=== PATIENT | female | born 1950 | race Caucasian/White ===

== ENCOUNTER 2017-08-07 12:44 | Inpatient (IN) | payer MEDICARE, BC ==
[~2017-08-07] VITALS: Ht 160 cm; Wt 50.0 kg
[2017-08-07 14:29] LABS: BASOPHILS 0.1 % (0-2); EOSINOPHILS 0.1 % (0-7); HEMOGLOBIN 12.1 g/dL (12-16); IMMATURE GRANULOCYTES 0.3 % (0-5); LYMPHOCYTES 8.2 % (15-50); MCH 37.2 pg (26.0-34.0); MCHC 33.6 g/dL (31.0-37.0); MCV 110.8 fL (80.0-100.0); MEAN PLATELET VOLUME 11.9 fL (7.4-10.4); MONOCYTES 11.7 % (2-11); NEUTROPHILS 79.6 % (40-80); RBC 3.25 10x6/uL (4.00-5.40); RDW 15.5 % (11.5-14.5); WBC 11.5 10x3/uL (4.8-10.8)
[2017-08-07 14:35] LABS: PLATELET COUNT 58 10x3/uL (130-400)
[2017-08-07 14:42] LABS: ALBUMIN 2.8 g/dL (3.4-5.0); ALKALINE PHOSPHATASE 106 U/L (46-116); ALT (SGPT) 42 U/L (10-68); BILIRUBIN - TOTAL 5.46 mg/dL (0.2-1.3); CALC OSMOLALITY 272 mosm/kg (275-300); CALCIUM 10.4 mg/dL (8.5-10.1); CHLORIDE - SERUM 98 mmol/L (98-107); CREATININE - SERUM 0.8 mg/dL (0.6-1.3); GLUCOSE 120 mg/dL (74-106); POTASSIUM - SERUM 3.9 mmol/L (3.5-5.1); PROTEIN - SERUM 8.5 g/dL (6.4-8.2); SODIUM 133 mmol/L (136-145); UREA NITROGEN 28 mg/dL (7-18); eGFR NON AFRICAN AMERICAN 76 mL/min (90-120)
[2017-08-07 15:02] LABS: PLATELET ESTIMATE DECREASED
[2017-08-07 15:29] LABS: UDS - AMPHET NEGATIVE QUAL (NEGATIVE); UDS - BARB NEGATIVE QUAL (NEGATIVE); UDS - BENZO NEGATIVE QUAL (NEGATIVE); UDS - COCAINE NEGATIVE QUAL (NEGATIVE); UDS - OPIATE NEGATIVE QUAL (NEGATIVE); UDS - PCP NEGATIVE QUAL (NEGATIVE); UDS - THC NEGATIVE QUAL (NEGATIVE)
[2017-08-07 15:48] LABS: APPEARANCE CLEAR (CLEAR); BILIRUBIN NEGATIVE (NEGATIVE); COLOR YELLOW (YELLOW); GLUCOSE NEGATIVE (NEGATIVE); KETONE NEGATIVE (NEGATIVE); NITRITE NEGATIVE (NEGATIVE); PROTEIN NEGATIVE (NEGATIVE); UROBILINOGEN NORMAL (NORMAL)
[2017-08-07] MEDS ORDERED: FERROUS SULFAT325 MG PO (20:41)
[2017-08-08 03:23] VITALS: BP 144/83; BMI 19.5
[2017-08-08 06:32] LABS: CALCIUM 9.2 mg/dL (8.5-10.1); CHLORIDE - SERUM 99 mmol/L (98-107); CREATININE - SERUM 0.8 mg/dL (0.6-1.3); GLUCOSE 101 mg/dL (74-106); SODIUM 132 mmol/L (136-145); eGFR NON AFRICAN AMERICAN 76 mL/min (90-120)
[2017-08-08 07:11] LABS: CALC OSMOLALITY 266 mosm/kg (275-300); POTASSIUM - SERUM 2.6 mmol/L (3.5-5.1); UREA NITROGEN 17 mg/dL (7-18)
[2017-08-08 09:24] LABS: BASOPHILS 0.1 % (0-2); HEMATOCRIT 32.5 % (36.0-48.0); HEMOGLOBIN 11.1 g/dL (12-16); IMMATURE GRANULOCYTES 0.4 % (0-5); LYMPHOCYTES 12.5 % (15-50); MCH 37.2 pg (26.0-34.0); MCHC 34.2 g/dL (31.0-37.0); MCV 109.1 fL (80.0-100.0); MEAN PLATELET VOLUME 12.5 fL (7.4-10.4); MONOCYTES 18.8 % (2-11); NEUTROPHILS 67.2 % (40-80); PLATELET COUNT 52 10x3/uL (130-400); RBC 2.98 10x6/uL (4.00-5.40); RDW 15.3 % (11.5-14.5)
[2017-08-08 09:36] VITALS: BP 149/60
[2017-08-08 10:36] VITALS: Ht 160 cm; Wt 50.0 kg
[2017-08-08 12:17] LABS: MAGNESIUM - SERUM 1.1 mg/dL (1.8-2.4); PHOSPHOROUS 2.9 mg/dL (2.5-4.9)
[2017-08-08 13:21] VITALS: BP 148/75
[2017-08-08 17:02] VITALS: BP 154/80
[2017-08-08 18:13] LABS: ALBUMIN 2.3 g/dL (3.4-5.0); ALKALINE PHOSPHATASE 123 U/L (46-116); ALT (SGPT) 35 U/L (10-68); CALC OSMOLALITY 270 mosm/kg (275-300); CALCIUM 8.5 mg/dL (8.5-10.1); CARBON DIOXIDE 20.3 mmol/L (21.0-32.0); CHLORIDE - SERUM 102 mmol/L (98-107); CREATININE - SERUM 0.7 mg/dL (0.6-1.3); GLUCOSE 137 mg/dL (74-106); PROTEIN - SERUM 6.7 g/dL (6.4-8.2); SODIUM 134 mmol/L (136-145); UREA NITROGEN 14 mg/dL (7-18); eGFR NON AFRICAN AMERICAN 89 mL/min (90-120)
[2017-08-08 18:20] LABS: MAGNESIUM - SERUM 1.8 mg/dL (1.8-2.4)
[2017-08-08 18:25] LABS: POTASSIUM - SERUM 2.6 mmol/L (3.5-5.1)
[2017-08-08 23:07] VITALS: BP 165/77
[2017-08-09 05:00] VITALS: BP 134/80
--- NOTE | 2017-08-09 05:04 | CN ---
PATIENT NAME:GLADYS SAINI MEDICAL RECORD: [id number] : 54 LOCATION:D.MS [facility] ADMIT DATE: 08/08/17 ACCOUNT: [id number] CONSULTING PHYSICIAN: KAYA SCHNEIDER III, MD REFERRING PHYSICIAN: MICHAEL BARRON MD DATE OF CONSULTATION: 08/08/2017 HISTORY OF PRESENT ILLNESS: This is a 67-year-old white female who was brought to the Emergency Department last night in an acutely delirious state. The patient appeared to be hallucinating. She was agitated and combative. Initial labs indicated significant dehydration. CT scan of the brain did not reveal acute intracranial pathology. The patient remained confused and was admitted to the medical floor. On exam this morning, the patient remains confused and slow to respond. She does admit to "drinking too much." She states that she has had delirium tremens in the past. She has been in alcohol treatment in the past, but states "I don't know what they can do." She states that her last drink was "a beer" about a week ago. MENTAL STATUS EXAM: The patient is perplexed, affect is rather shallow. Speech shows a great deal of latency and frequent word finding pauses. Content of thought at present is not positive for overt psychosis. On sensorium testing, the patient is oriented to person and the fact that she is in the [facility]. She is quite confused about the time. She guesses correctly that the month is July. Remote recall appears to be relatively intact, but there is increased latency in her recollections, intermediate and short-term recall are impaired consistent with recent delirium. IMPRESSION: Alcoholism by history, likely delirium from withdrawal. PLAN: 1. At the present time, medical workup is continuing. If the patient shows delano withdrawal symptoms, then use of p.r.n. benzodiazepines is indicated. 2. If the patient continues to remain confused and/or psychotic and medical workup is inconclusive, then we may accept her on nursing home for further evaluation. 3. At the time of discharge, the patient should be given a referral for [facility] for supportive counseling and perhaps referral to a 12-step program. TRANSINT:[id number] Voice Confirmation ID: [id number] DOCUMENT ID: [id number] KAYA SCHNEIDER III, MD at 0504 CC: [id number] DICTATION DATE: 08/08/17 0932 DOT COMPLIANCE SPECIALIST: 08/08/17 1008 ADM IN [facility] [address] [id number]
--- NOTE | 2017-08-09 05:44 | NUR ---
PT RESTING IN BED WITH NO DISTRESS. RESPIRATIONS EVEN AND UNLABORED. SIDE RAILS X 2. BED LOW. CALL LIGHT IN REACH.
[2017-08-09 05:47] LABS: HEMATOCRIT 36.6 % (36.0-48.0); HEMOGLOBIN 12.4 g/dL (12-16); MCHC 33.9 g/dL (31.0-37.0); MCV 109.3 fL (80.0-100.0); MEAN PLATELET VOLUME 12.2 fL (7.4-10.4); RBC 3.35 10x6/uL (4.00-5.40); RDW 15.2 % (11.5-14.5); WBC 8.4 10x3/uL (4.8-10.8)
[2017-08-09 05:56] LABS: PLATELET COUNT 64 10x3/uL (130-400)
[2017-08-09 06:17] LABS: ALBUMIN 2.7 g/dL (3.4-5.0); ALKALINE PHOSPHATASE 139 U/L (46-116); ALT (SGPT) 43 U/L (10-68); CALC OSMOLALITY 265 mosm/kg (275-300); CALCIUM 9.4 mg/dL (8.5-10.1); CARBON DIOXIDE 23.5 mmol/L (21.0-32.0); CHLORIDE - SERUM 97 mmol/L (98-107); CREATININE - SERUM 0.8 mg/dL (0.6-1.3); GLUCOSE 114 mg/dL (74-106); PROTEIN - SERUM 8.2 g/dL (6.4-8.2); SODIUM 132 mmol/L (136-145); UREA NITROGEN 12 mg/dL (7-18); eGFR NON AFRICAN AMERICAN 76 mL/min (90-120)
[2017-08-09 06:38] LABS: POTASSIUM - SERUM 2.5 mmol/L (3.5-5.1)
[2017-08-09 06:42] LABS: LYMPHOCYTES 12 % (15-50); MONOCYTES 17 % (2-11); NEUTROPHILS 64 % (40-80); PLATELET ESTIMATE DECREASED
--- NOTE | 2017-08-09 08:00 | NUR ---
NO CHANGES NOTED AT THIS TIME REC'D IN BED WITH EYES CLOSED EASILY AROUSED WHEN NAME IS CALLED. RESP EVEN AND UNLABORED. NOC/O NOTED OR VOICED. ASSESSMENT COMPLETED. C/L IN REACH AT BEDSIDE.
[2017-08-09 08:33] VITALS: BP 149/75
[2017-08-09 10:06] LABS: MAGNESIUM - SERUM 1.5 mg/dL (1.8-2.4)
[2017-08-09 10:09] LABS: PHOSPHOROUS 2.1 mg/dL (2.5-4.9)
--- NOTE | 2017-08-09 11:28 | NUR ---
IV RESITED TO RIGHT FOREARM WITH 22 GA X 1 STICK. TOLERATED WELL
[2017-08-09 12:21] VITALS: BP 159/78
--- NOTE | 2017-08-09 12:42 | NUR ---
Patient Name: GLADYS SAINI Admission Status: ER Accout number: [id number] Admission Date: 08-08-2017 : 1950 Admission Diagnosis: Attending: MICHAEL WHITESIDE Current LOS: 1 Anticipated DC Date: Planned Disposition: Home Primary Insurance: MEDICARE A & B Discharge Planning Comments: CM met with patient to assess discharge planning needs. Patient lives independently at home where she plans to return. Her sister Lianna will be the one to drive her home and stated that she will help her if she needs it. Patient admitted that she had an alcohol problem but stated that she has not had a drink in a week. I offered her information about treatment centers and she was not interested. I explained to her that Dr Landin would like a referral sent to [facility] she stated I could send the referral and she would decide if she would go or not. She wants to go home. CM offered HH and she refused that. Referral will be made to [facility]. Referrral faxed to [phone]. CM will continue to follow and assist with discharge planning needs PCP: Lisa Quintana on [address] [phone] Coagulation Operator: Amber Sands
[2017-08-09 14:17] LABS: ALBUMIN 2.4 g/dL (3.4-5.0); ALKALINE PHOSPHATASE 138 U/L (46-116); ALT (SGPT) 38 U/L (10-68); BILIRUBIN - TOTAL 5.15 mg/dL (0.2-1.3); CALCIUM 8.6 mg/dL (8.5-10.1); CARBON DIOXIDE 23.4 mmol/L (21.0-32.0); CHLORIDE - SERUM 99 mmol/L (98-107); CREATININE - SERUM 0.8 mg/dL (0.6-1.3); PROTEIN - SERUM 7.1 g/dL (6.4-8.2); SODIUM 131 mmol/L (136-145); UREA NITROGEN 13 mg/dL (7-18); eGFR NON AFRICAN AMERICAN 76 mL/min (90-120)
[2017-08-09 14:19] LABS: CALC OSMOLALITY 266 mosm/kg (275-300); GLUCOSE 163 mg/dL (74-106)
[2017-08-09 14:25] LABS: POTASSIUM - SERUM 2.6 mmol/L (3.5-5.1)
[2017-08-09 20:00] VITALS: BP 156/75
--- NOTE | 2017-08-09 20:00 | NUR ---
PT IS RESTING IN BED WITH EYES OPEN. ALERT TO SELF. CONFUSED TO TIME AND PLACE. UNABLE TO REORIENT PT. IV INFUSING TO LEFT AC. NO REDNESS OR EDEMA NOTED AT THE INSERTION SITE. IV POTASSIUM INFUSING AT THIS TIME. PT ASSISTED TO BEDSIDE COMMODE AT THIS TIME. SR'S ARE UP X 3 IN BED. CALL LIGHT AND BEDSIDE TABLE ARE WITHIN EASY REACH. BED ALARMS X 2 ON BED.
[2017-08-09 20:29] LABS: ALBUMIN 2.2 g/dL (3.4-5.0); ANION GAP 11.4 mmol/L (8-16); BILIRUBIN - TOTAL 4.37 mg/dL (0.2-1.3); CALCIUM 8.5 mg/dL (8.5-10.1); CARBON DIOXIDE 23.7 mmol/L (21.0-32.0); CREATININE - SERUM 0.9 mg/dL (0.6-1.3); PHOSPHOROUS 1.9 mg/dL (2.5-4.9); PROTEIN - SERUM 7.1 g/dL (6.4-8.2)
[2017-08-09 20:30] LABS: MAGNESIUM - SERUM 1.9 mg/dL (1.8-2.4); POTASSIUM - SERUM 3.1 mmol/L (3.5-5.1)
--- NOTE | 2017-08-09 22:27 | NUR ---
PT RESTING IN BED WITH EYES OPEN. NO NEEDS VOICED. IV MAGNESIUM INFUSING.
--- NOTE | 2017-08-10 00:09 | NUR ---
UPON STARTING TO HANG PTS 3RD BAG OF K+, IV SITE NOTED TO BE INFILTRATED. IV DC'D WITH CATH INTACT. BANDAID AND HEAT PACK APPLIED TO SITE. PT REFUSING TO HAVE IV RESITED AT THIS TIME. SHE YANKS HER ARM BACK, SAYING "I SAID NO!"
--- NOTE | 2017-08-10 01:18 | NUR ---
PT RESTING IN BED WITH EYES OPEN. INC. CARE GIVEN.
--- NOTE | 2017-08-10 03:34 | NUR ---
PT AGREED TO HAVE IV RESITED. RESITED TO LEFT INNER FOREARM WITH 22G CATH USING STERILE TECHNIQUE. SECURED WITH TAPE AND OPSITE. IV RESTARTED.
[2017-08-10 04:00] VITALS: BP 176/83
--- NOTE | 2017-08-10 04:59 | NUR ---
RN NOTE: PT RESTING ON LEFT SIDE WITH EYES CLOSED AND EASY RESPIRATIONS. BED ALARMS IN USE X2 FOR SAFETY. WILL CONTINUE TO MONITOR FOR NEEDS. CALL LIGHT WITHIN REACH.
[2017-08-10 05:41] LABS: BASOPHILS 0.1 % (0-2); EOSINOPHILS 0.7 % (0-7); HEMOGLOBIN 11.2 g/dL (12-16); IMMATURE GRANULOCYTES 0.6 % (0-5); LYMPHOCYTES 8.5 % (15-50); MCH 36.6 pg (26.0-34.0); MCHC 33.9 g/dL (31.0-37.0); MCV 107.8 fL (80.0-100.0); MEAN PLATELET VOLUME 11.5 fL (7.4-10.4); MONOCYTES 18.8 % (2-11); NEUTROPHILS 71.3 % (40-80); PLATELET COUNT 57 10x3/uL (130-400); RBC 3.06 10x6/uL (4.00-5.40); RDW 15.2 % (11.5-14.5); WBC 9.7 10x3/uL (4.8-10.8)
--- NOTE | 2017-08-10 05:49 | NUR ---
PT RESTING QUIETLY IN BED WITH EYES CLOSED.
[2017-08-10 06:11] LABS: ALBUMIN 2.1 g/dL (3.4-5.0); ALKALINE PHOSPHATASE 138 U/L (46-116); ALT (SGPT) 35 U/L (10-68); BILIRUBIN - TOTAL 4.11 mg/dL (0.2-1.3); CALC OSMOLALITY 261 mosm/kg (275-300); CALCIUM 8.7 mg/dL (8.5-10.1); CARBON DIOXIDE 23.8 mmol/L (21.0-32.0); CHLORIDE - SERUM 98 mmol/L (98-107); CREATININE - SERUM 0.7 mg/dL (0.6-1.3); GLUCOSE 138 mg/dL (74-106); MAGNESIUM - SERUM 1.8 mg/dL (1.8-2.4); PHOSPHOROUS 1.9 mg/dL (2.5-4.9); PROTEIN - SERUM 6.6 g/dL (6.4-8.2); SODIUM 130 mmol/L (136-145); UREA NITROGEN 11 mg/dL (7-18); eGFR NON AFRICAN AMERICAN 89 mL/min (90-120)
[2017-08-10 06:29] LABS: POTASSIUM - SERUM 2.8 mmol/L (3.5-5.1)
[2017-08-10 07:11] VITALS: BP 138/75
--- NOTE | 2017-08-10 08:12 | NUR ---
PT LYING IN BED ON RT SIDE, EYES CLOSED, STATED SHE IS RESTING. UP AND DOWN ALL NIGHT. PT K+ IS 2.8. PT IS ON 1ST BAG OF RIDER FOR THIS MORNING JUST FINISHED 4TH BAG FROM YESTERDAYS PROTOCOL AT 0500 PER KAJAL GAYLE. MAG AT 1.9 CONTINUE WITH PLAN OF CARE. BED IN LOWEST POSITION, CL ION REACH
[2017-08-10 12:24] VITALS: BP 134/86
--- NOTE | 2017-08-10 13:20 | NUR ---
NUTRITION F/U CHART REVIEWED. REG DIET WITH ENSURE. PT WITH 50 TO 75% INTAKE RECENT MEALS. WILL CONTINUE TO PROVIDE DIET, MONITOR PO INTAKE. RD FOLLOWING
--- NOTE | 2017-08-10 14:32 | NUR ---
SPOKE WITH PT'S SISTER RAEGAN SORTO, STATED SHE IS CONCERNED BECAUSE FRIEND IN [facility] HAS POWER OF EDUCATION COUNSELOR FOR HEALTHCARE OVER HER AND HAS BEEN CALLING DR VINES'S OFFICE TO HAVE SOMEONE CALL HIM SO HE KNOWS WHAT THE NEXT PLAN OF ACTION IS AND IF HE NEEDS TO COME HERE, ADVISED THAT I WILL NEED A COPY OF PAPERWORK IN ORDER FOR TO DPEAK WITH HIM. RONDA IS [employer] [place] [employer]- [phone] AND HOME# IS [phone]
[2017-08-10] MEDS ORDERED: VITAMIN B-1100 M1 PO (15:27)
[2017-08-10] MEDS ORDERED: FOLIC ACID1 MG PO (15:28)
[2017-08-10] MEDS ORDERED: K-DUR20 MEQ PO (15:29)
--- NOTE | 2017-08-10 22:17 | NUR ---
PT DISCHARGED HOME WITH SISTER AT 2044. LEFT FLOOR IN W/C WITH STAFF ASSIST AND SISTER. EARLIER ASSESSMENT REVEALS LUNG SOUNDS CLEAR BILATERAL. BSX4 AND LARGE BRUISE TO LEFT HIP AND THIGH. BECOMES AGGITATED WHEN ASKED QUESTIONS. ASKED IF SHE WANTED REHAB AND WOULD NOT ANSWER. LETHARGIC IN BED. REQUIRES MOD ASSIST WHEN ASSISTING TO B/R. ASKED TO GO TO THE B/R EARLIER AND WHEN THIS NURSE ATTEMPTED TO ASSIST HER SHE STATED " I ALREADY WENT". BRIEF CHANGED AND PERICARE PROVIDED. EDUCATED ON DISCHARGE MEDICATIONS AND FOLLOW UP APPT.. EDUCATION SENT HOME WITH PT.. EXPLAINED THAT SHE NEEDED TO TAKE HER POTASSIUM ORDERS AND KEEP HER DR. APPT SO THEY COULD CHECK HER LEVELS. EXPLAINED THAT POTASSIUM LEVELS TO HIGH OR LOW COULD CAUSE SERIOUS PROBLEMS INCLUDING . SISTER AT BEDSIDE AND EDUCATED ALSO.
== END 2017-08-10 20:45 | disposition home or self-care (01) | DRG 640 ==
LOC: D.ER 12:44 → OBSVTIME 19:01 → D.MS 19:01
PROVIDERS: Emergency Medicine; ADMIT Family Medicine
DX: E86.0 Dehydration (principal); G93.41 Metabolic encephalopathy; R44.3 Hallucinations, unspecified; F17.203 Nicotine dependence unspecified, with withdrawal; F10.20 Alcohol dependence, uncomplicated; F91.8 Other conduct disorders; E87.6 Hypokalemia; E87.1 Hypo-osmolality and hyponatremia; R41.0 Disorientation, unspecified; R00.0 Tachycardia, unspecified

== ENCOUNTER 2017-10-11 10:04 | Inpatient (IN) | payer MEDICARE, BC ==
--- NOTE | ~2017-10-11 | CN ---
PATIENT NAME:GLADYS MAI MEDICAL RECORD: [id number] : 54 LOCATION:D.MS Tob[facility]2235 ADMIT DATE: 10/11/17 ACCOUNT: [id number] CONSULTING PHYSICIAN: KIRBY MOREIRA MD REFERRING PHYSICIAN: TIFFANIE MCCORMACK MD DATE OF CONSULTATION: 10/16/2017 CONSULT REQUESTING PHYSICIAN: Fiorella Patrick MD REASON FOR CONSULTATION: Bilateral pneumonia. HISTORY OF PRESENT ILLNESS: Ms. Mai is a 67-year-old female who was admitted on 10/11/2017 with altered mental status and chest radiograph shows bilateral infiltrate, right more than the left. Also, there is a possibility of seizure. Workup showed that the patient has cirrhosis and the patient does have a history of ethanol abuse. PAST MEDICAL HISTORY: 1. Hypertension. 2. Anxiety. 3. History of vertigo. PAST SURGICAL HISTORY: 1. She has a hysterectomy. 2. Ankle surgery times 3. ALLERGIES: She is allergic to VANCOMYCIN. PRESENT MEDICATIONS: She is on Levaquin IV. Her other medication is reviewed. PERSONAL AND SOCIAL HISTORY: The patient still is every day smoker and drinker. FAMILY HISTORY: Noncontributory. PHYSICAL EXAMINATION: GENERAL: Now, the patient is lying comfortably in bed. She is not in acute distress. VITAL SIGNS: The blood pressure is 137/90, pulse is 101, respiration is 16, temperature is 98.8. SpO2 is 97% on room air. HEENT: Conjunctivae is pink, sclerae nonicteric. NECK: Supple, no JVD. CHEST: The chest excursion is minimal on both sides. There are crackles at the bases. HEART: Rate and rhythm regular, normal heart sound, no murmur. ABDOMEN: Soft. Bowel sounds present. There is hepatomegaly. RECTAL: Deferred. EXTREMITIES: No cyanosis, no clubbing, no pedal edema. SKIN: Warm, normal turgor. CENTRAL NERVOUS SYSTEM: The patient is awake and alert. There is no obvious cranial nerve abnormality. The gait was not tested. LABORATORY DATA: CBC: The WBC is 6.4, hemoglobin 12.1, hematocrit 35.7, and the platelet count 123. Chemistry: Sodium 137, potassium 3.2. BUN is 8, creatinine 0.8, bicarb is 23.4. Chest radiograph: There is bilateral infiltrate. CTA of the chest: There is no PE. There is a multifocal pneumonia CONSULT REPORT [id number] GLADYS MAI bilaterally. Prominent pulmonary vessels. Cardiac echo: The PA pressure is 33, the EF is 60%. IMPRESSION: 1. Bilateral pneumonia, possibly aspiration at the time of seizure. 2. Seizure disorder. 3. Cirrhosis of liver. 4. Liver mass. 5. Ethanol abuse. 6. Tobacco dependence syndrome, suspect COPD. RECOMMENDATION: 1. Continue Levaquin. I will add Zosyn to cover for anaerobes and aspiration pneumonia. 2. Follow up labs and chest radiograph. 3. The patient is awaiting a biopsy of the liver. Dr. Patrick thank you for involving me in the care of Ms. Mai. TRANSINT:[id number] Voice Confirmation ID: [id number] DOCUMENT ID: [id number] KIRBY MOREIRA MD at 1340 CC: FIORELLA PATRICK [id number] DICTATION DATE: 10/16/17 1501 NEW MEDIA STRATEGIST: 10/16/17 1526 DIS IN 10/18/17 [facility] [address] [place] [address]
--- NOTE | ~2017-10-11 | EC ---
PATIENT:GLADYS SAINI DATE OF SERVICE: 10/11/17 SEX: F MEDICAL RECORD: [id number] DATE OF : 54 LOCATION:D.MS [place] AGE OF PATIENT: 67 ADMISSION DATE: 10/11/17 REFERRING PHYSICIAN: INTERPRETING PHYSICIAN: DUGLAS GUIDRY MD ECHOCARDIOGRAM REPORT ECHO CHARGES 4 ECHO COMPLETE CLINICAL DIAGNOSIS: MURMUR HX OF HTN ECHOCARDIOGRAPHIC MEASUREMENTS (adult normal given) AC root (d.<3.7cm) 4.1 cm LV Septum d (<1.2 cm> 2.0 cm Valve Excursion 2.0 cm LV Septum (systole) 2.1 cm Left Atria (s.<4.0cm> 3.1 cm LVPW d(<1.2cm) 1.8 cm RV (d.<2.3cm) 3.2 cm LVPW (sytole) 2.1 cm LV diastole(<5.6CM) 4.4 cm MV E-F(>70mm/sec) cm LV systole 1.8 cm LVOT Diameter 1.4 cm MV exc.(>10mm) 1.7 cm Est.ejection fraction (50-75%) % Pericardial Effusion N DOPPLER: LVIT cm/sec A 102 cm/sec E 84.0 cm/sec LA cm/sec RVSP 33 mmHg LVOT 163 cm/sec AOP1/2T m/s Asc. Ao 211 cm/sec RVOT 134 cm/sec RA cm/sec PA 275 cm/sec AV Gradient Peak 17.76mmHg AV Mean 9.77 mmHg AV Area 1.3 cm MV Gradient Peak 4.59 mmHg MV Mean 2.18 mmHg MV Area cm COMMENTS: Life Sciences Manager: Lilian SANTOS Clinical Appeals Rn: 2 Dr. Rodriguez TAPE# PACS DATE OF SERVICE: 10/12/2017 Echocardiogram FINDINGS: 1. Left ventricular chamber size is within normal limits. Left ventricular systolic function is normal, ejection fraction 60%. 2. Left ventricular hypertrophy is present, concentric with no evidence of outflow tract hypertrophy. 3. Valvular structures have normal structure and motion. ECHOCARDIOGRAM REPORT [id number] GLADYS SAINI 4. Doppler interrogation reveals mild aortic insufficiency, mild tricuspid regurgitation, no other valvular insufficiency or stenosis. Pulmonary systolic pressure is estimated at 33 mmHg. 5. No evidence of pericardial effusion or left ventricular thrombus. TRANSINT:[id number] Voice Confirmation ID: [id number] DOCUMENT ID: [id number] DUGLAS GUIDRY MD at 1148 CC: [id number] DICTATION DATE: 10/12/17 1312 SUPERVISOR MAILS: 10/12/17 1416 DIS IN 10/18/17 [address] [id number] [place] [id number]
[~2017-10-11 10:04] MED LIST: FERROUS SULFAT325 MG PO; FOLIC ACID1 MG PO; K-DUR20 MEQ PO; VITAMIN B-1100 M1 PO
[2017-10-11 10:45] LABS: BASOPHILS 0.5 % (0-2); EOSINOPHILS 1.1 % (0-7); HEMATOCRIT 37.2 % (36.0-48.0); HEMOGLOBIN 12.5 g/dL (12-16); IMMATURE GRANULOCYTES 0.6 % (0-5); MCH 34.9 pg (26.0-34.0); MCHC 33.6 g/dL (31.0-37.0); MCV 103.9 fL (80.0-100.0); MEAN PLATELET VOLUME 10.4 fL (7.4-10.4); MONOCYTES 8.4 % (2-11); NEUTROPHILS 72.4 % (40-80); RBC 3.58 10x6/uL (4.00-5.40); RDW 15.5 % (11.5-14.5); WBC 10.3 10x3/uL (4.8-10.8)
[2017-10-11 10:51] LABS: PLATELET COUNT 110 10x3/uL (130-400)
[2017-10-11 11:02] LABS: APTT 33.1 SECONDS (22.8-39.4); INR 1.52 (0.85-1.17); PROTIME 17.8 SECONDS (11.6-15.0)
[2017-10-11 11:03] LABS: D-DIMER-QUANTITATIVE 1.92 ug/mLFEU (0.20-0.54)
[2017-10-11 11:09] LABS: ALBUMIN 2.5 g/dL (3.4-5.0); ALKALINE PHOSPHATASE 114 U/L (46-116); ALT (SGPT) 29 U/L (10-68); CALC OSMOLALITY 264 mosm/kg (275-300); CALCIUM 8.8 mg/dL (8.5-10.1); CARBON DIOXIDE 25.9 mmol/L (21.0-32.0); CHLORIDE - SERUM 96 mmol/L (98-107); CREATININE - SERUM 0.9 mg/dL (0.6-1.3); GLUCOSE 180 mg/dL (74-106); POTASSIUM - SERUM 3.6 mmol/L (3.5-5.1); SODIUM 130 mmol/L (136-145); UREA NITROGEN 9 mg/dL (7-18); eGFR NON AFRICAN AMERICAN 67 mL/min (90-120)
[2017-10-11 11:18] LABS: UDS - AMPHET NEGATIVE QUAL (NEGATIVE); UDS - BARB NEGATIVE QUAL (NEGATIVE); UDS - BENZO NEGATIVE QUAL (NEGATIVE); UDS - COCAINE NEGATIVE QUAL (NEGATIVE); UDS - OPIATE NEGATIVE QUAL (NEGATIVE); UDS - PCP NEGATIVE QUAL (NEGATIVE); UDS - THC NEGATIVE QUAL (NEGATIVE)
[2017-10-11 11:19] LABS: AMYLASE - SERUM 68 U/L (25-115); CKMB 1.1 U/L (0.0-3.6); CREATINE KINASE 61 UL (21-215); LIPASE 554 U/L (73-393); PRO BNP 260 pg/mL (0-125); TROPONIN-I < 0.017 ng/mL (0.000-0.060)
[2017-10-11 11:21] LABS: APPEARANCE SLT CLOUDY (CLEAR); BILIRUBIN NEGATIVE (NEGATIVE); COLOR YELLOW (YELLOW); GLUCOSE NEGATIVE (NEGATIVE); KETONE NEGATIVE (NEGATIVE); NITRITE NEGATIVE (NEGATIVE); PROTEIN NEGATIVE (NEGATIVE); UROBILINOGEN NORMAL (NORMAL)
[2017-10-11 11:23] LABS: BACTERIA MANY /hpf (NONE SEEN); EPITHELIAL CELLS 0-5 /hpf (0-5); RED CELLS - URINE 0-5 /hpf (0-5); WHITE CELLS - URINE 0-5 /hpf (0-5)
[2017-10-12] VITALS (25 sets, daily range): BP systolic 94–167; BP diastolic 52–97; BMI 22.0; BMI 22.1
[2017-10-12 03:59] LABS: BASOPHILS 0.3 % (0-2); EOSINOPHILS 1.1 % (0-7); HEMATOCRIT 34.7 % (36.0-48.0); HEMOGLOBIN 11.8 g/dL (12-16); IMMATURE GRANULOCYTES 0.2 % (0-5); LYMPHOCYTES 25.5 % (15-50); MCH 34.3 pg (26.0-34.0); MEAN PLATELET VOLUME 9.7 fL (7.4-10.4); MONOCYTES 8.6 % (2-11); NEUTROPHILS 64.3 % (40-80); PLATELET COUNT 110 10x3/uL (130-400); RBC 3.44 10x6/uL (4.00-5.40); RDW 15.4 % (11.5-14.5); WBC 9.2 10x3/uL (4.8-10.8)
[2017-10-12 04:02] LABS: MCV 100.9 fL (80.0-100.0)
[2017-10-12 04:18] LABS: ALBUMIN 1.9 g/dL (3.4-5.0); ALKALINE PHOSPHATASE 90 U/L (46-116); BILIRUBIN - TOTAL 1.43 mg/dL (0.2-1.3); CARBON DIOXIDE 24.3 mmol/L (21.0-32.0); CHLORIDE - SERUM 102 mmol/L (98-107); CREATININE - SERUM 0.7 mg/dL (0.6-1.3); PROTEIN - SERUM 7.4 g/dL (6.4-8.2); SODIUM 137 mmol/L (136-145); UREA NITROGEN 8 mg/dL (7-18); eGFR NON AFRICAN AMERICAN 89 mL/min (90-120)
[2017-10-12 04:20] LABS: CALC OSMOLALITY 271 mosm/kg (275-300); GLUCOSE 96 mg/dL (74-106)
[2017-10-12 04:24] LABS: ALT (SGPT) 18 U/L (10-68); POTASSIUM - SERUM 2.7 mmol/L (3.5-5.1)
[2017-10-12 14:11] LABS: % SATURATION 48 % (15-55); IRON 123 ug/dl (35-150); TOTAL IRON BIND CAPACITY 255 ug/dl (260-445); UNSAT IRON BIND CAPACITY 132 ug/dl (150-375)
[2017-10-13] VITALS (17 sets, daily range): BP systolic 93–134; BP diastolic 63–83
[2017-10-13 04:07] LABS: BASOPHILS 0.4 % (0-2); EOSINOPHILS 3.4 % (0-7); HEMATOCRIT 34.6 % (36.0-48.0); HEMOGLOBIN 11.5 g/dL (12-16); IMMATURE GRANULOCYTES 0.4 % (0-5); LYMPHOCYTES 33.2 % (15-50); MCH 34.3 pg (26.0-34.0); MCHC 33.2 g/dL (31.0-37.0); MEAN PLATELET VOLUME 10.2 fL (7.4-10.4); MONOCYTES 9.9 % (2-11); NEUTROPHILS 52.7 % (40-80); PLATELET COUNT 88 10x3/uL (130-400); RBC 3.35 10x6/uL (4.00-5.40); RDW 15.3 % (11.5-14.5)
[2017-10-13 04:08] LABS: MCV 103.3 fL (80.0-100.0); WBC 5.6 10x3/uL (4.8-10.8)
[2017-10-13 04:26] LABS: ALBUMIN 1.7 g/dL (3.4-5.0); ALKALINE PHOSPHATASE 79 U/L (46-116); ALT (SGPT) 18 U/L (10-68); BILIRUBIN - TOTAL 1.29 mg/dL (0.2-1.3); CALC OSMOLALITY 275 mosm/kg (275-300); CALCIUM 7.7 mg/dL (8.5-10.1); CARBON DIOXIDE 22.9 mmol/L (21.0-32.0); CHLORIDE - SERUM 109 mmol/L (98-107); CREATININE - SERUM 0.7 mg/dL (0.6-1.3); GLUCOSE 95 mg/dL (74-106); POTASSIUM - SERUM 3.7 mmol/L (3.5-5.1); SODIUM 139 mmol/L (136-145); UREA NITROGEN 6 mg/dL (7-18); eGFR NON AFRICAN AMERICAN 89 mL/min (90-120)
[2017-10-13 05:16] LABS: ALPHA FETOPROTEIN -(TUMOR MRK) 4.8 ng/mL (0.0-8.3); CA 19-9 179 U/mL (0-35); CEA 27.1 ng/mL (0.0-4.7)
[2017-10-13 08:17] LABS: FOLATE (FOLIC ACID) - SERUM 14.3 ng/mL (>3.0)
[2017-10-13 12:11] LABS: HEPATITIS C ANTIBODY <0.1 (0.0-0.9)
[2017-10-14] VITALS (15 sets, daily range): BP systolic 112–149; BP diastolic 51–80
[2017-10-14 03:58] LABS: BASOPHILS 0.8 % (0-2); EOSINOPHILS 3.6 % (0-7); HEMATOCRIT 37.2 % (36.0-48.0); HEMOGLOBIN 12.5 g/dL (12-16); IMMATURE GRANULOCYTES 0.5 % (0-5); LYMPHOCYTES 47.3 % (15-50); MCH 34.8 pg (26.0-34.0); MCHC 33.6 g/dL (31.0-37.0); MCV 103.6 fL (80.0-100.0); MEAN PLATELET VOLUME 10.3 fL (7.4-10.4); MONOCYTES 6.8 % (2-11); RBC 3.59 10x6/uL (4.00-5.40); RDW 15.3 % (11.5-14.5)
[2017-10-14 04:01] LABS: PLATELET COUNT 117 10x3/uL (130-400); WBC 11.1 10x3/uL (4.8-10.8)
[2017-10-14 04:17] LABS: ANION GAP 11.7 mmol/L (8-16); BILIRUBIN - TOTAL 1.4 mg/dL (0.2-1.3); CALCIUM 7.1 mg/dL (8.5-10.1); CARBON DIOXIDE 21.3 mmol/L (21.0-32.0); PROTEIN - SERUM 7.4 g/dL (6.4-8.2)
[2017-10-14 04:19] LABS: CREATININE - SERUM 0.9 mg/dL (0.6-1.3)
[2017-10-15 03:00] VITALS: BP 131/70
[2017-10-15 03:39] LABS: BASOPHILS 0.5 % (0-2); EOSINOPHILS 5.5 % (0-7); HEMATOCRIT 33.7 % (36.0-48.0); IMMATURE GRANULOCYTES 0.4 % (0-5); LYMPHOCYTES 37.6 % (15-50); MCH 33.8 pg (26.0-34.0); MCHC 32.6 g/dL (31.0-37.0); MCV 103.7 fL (80.0-100.0); MEAN PLATELET VOLUME 9.9 fL (7.4-10.4); MONOCYTES 8.7 % (2-11); NEUTROPHILS 47.3 % (40-80); PLATELET COUNT 113 10x3/uL (130-400); RBC 3.25 10x6/uL (4.00-5.40); RDW 15.5 % (11.5-14.5)
[2017-10-15 03:40] LABS: WBC 7.6 10x3/uL (4.8-10.8)
[2017-10-15 04:00] LABS: ALBUMIN 1.7 g/dL (3.4-5.0); ALKALINE PHOSPHATASE 86 U/L (46-116); ALT (SGPT) 22 U/L (10-68); BILIRUBIN - TOTAL 0.81 mg/dL (0.2-1.3); CALC OSMOLALITY 272 mosm/kg (275-300); CALCIUM 7.6 mg/dL (8.5-10.1); CARBON DIOXIDE 21.9 mmol/L (21.0-32.0); CHLORIDE - SERUM 109 mmol/L (98-107); CREATININE - SERUM 0.8 mg/dL (0.6-1.3); GLUCOSE 116 mg/dL (74-106); POTASSIUM - SERUM 3.9 mmol/L (3.5-5.1); PROTEIN - SERUM 6.7 g/dL (6.4-8.2); SODIUM 137 mmol/L (136-145); UREA NITROGEN 8 mg/dL (7-18); eGFR NON AFRICAN AMERICAN 76 mL/min (90-120)
[2017-10-15 07:00] VITALS: BP 136/81
[2017-10-15 07:59] LABS: INR 1.44 (0.85-1.17); PROTIME 17.1 SECONDS (11.6-15.0)
[2017-10-15 11:00] VITALS: BP 148/81
[2017-10-15 15:00] VITALS: BP 173/91
[2017-10-15 15:20] LABS: MITOCHONDRIAL ANTIBODY 71.2 Units (0.0-20.0); SMOOTH MUSCLE ABS (ACTIN) 29 Units (0-19)
[2017-10-15 19:00] VITALS: BP 148/93
[2017-10-15 23:00] VITALS: BP 140/98
[2017-10-16 03:00] VITALS: BP 137/90
[2017-10-16 04:35] LABS: HEMATOCRIT 35.7 % (36.0-48.0); HEMOGLOBIN 12.1 g/dL (12-16); MCH 34.7 pg (26.0-34.0); MCHC 33.9 g/dL (31.0-37.0); MCV 102.3 fL (80.0-100.0); MEAN PLATELET VOLUME 10.1 fL (7.4-10.4); NEUTROPHILS 50.3 % (40-80); PLATELET COUNT 123 10x3/uL (130-400); RBC 3.49 10x6/uL (4.00-5.40); RDW 16.1 % (11.5-14.5); WBC 6.4 10x3/uL (4.8-10.8)
[2017-10-16 04:52] LABS: ALBUMIN 1.9 g/dL (3.4-5.0); ALKALINE PHOSPHATASE 92 U/L (46-116); ALT (SGPT) 23 U/L (10-68); BILIRUBIN - TOTAL 1.03 mg/dL (0.2-1.3); CALC OSMOLALITY 271 mosm/kg (275-300); CALCIUM 7.8 mg/dL (8.5-10.1); CARBON DIOXIDE 23.4 mmol/L (21.0-32.0); CHLORIDE - SERUM 105 mmol/L (98-107); CREATININE - SERUM 0.8 mg/dL (0.6-1.3); GLUCOSE 100 mg/dL (74-106); PROTEIN - SERUM 7.4 g/dL (6.4-8.2); SODIUM 137 mmol/L (136-145); UREA NITROGEN 8 mg/dL (7-18); eGFR NON AFRICAN AMERICAN 76 mL/min (90-120)
[2017-10-16 04:58] LABS: POTASSIUM - SERUM 3.2 mmol/L (3.5-5.1)
[2017-10-16 07:00] VITALS: BP 137/92
[2017-10-16 07:23] LABS: ANA REFLEX - DIRECT Negative (Negative)
[2017-10-16 08:13] LABS: INR 1.41 (0.85-1.17); PROTIME 16.8 SECONDS (11.6-15.0)
[2017-10-16 21:28] VITALS: BP 133/81
[2017-10-17] VITALS (13 sets, daily range): BP systolic 123–146; BP diastolic 68–88
[2017-10-17 04:58] LABS: BASOPHILS 0.5 % (0-2); EOSINOPHILS 5.2 % (0-7); HEMATOCRIT 35.2 % (36.0-48.0); HEMOGLOBIN 11.7 g/dL (12-16); IMMATURE GRANULOCYTES 0.3 % (0-5); LYMPHOCYTES 33.3 % (15-50); MCH 33.9 pg (26.0-34.0); MCHC 33.2 g/dL (31.0-37.0); MONOCYTES 8.3 % (2-11); NEUTROPHILS 52.4 % (40-80); PLATELET COUNT 104 10x3/uL (130-400); RBC 3.45 10x6/uL (4.00-5.40); RDW 15.3 % (11.5-14.5); WBC 6.2 10x3/uL (4.8-10.8)
[2017-10-17 05:18] LABS: ALBUMIN 1.9 g/dL (3.4-5.0); ALKALINE PHOSPHATASE 90 U/L (46-116); ALT (SGPT) 23 U/L (10-68); BILIRUBIN - TOTAL 1.53 mg/dL (0.2-1.3); CALC OSMOLALITY 271 mosm/kg (275-300); CALCIUM 7.8 mg/dL (8.5-10.1); CARBON DIOXIDE 22.1 mmol/L (21.0-32.0); CHLORIDE - SERUM 105 mmol/L (98-107); CREATININE - SERUM 0.7 mg/dL (0.6-1.3); GLUCOSE 90 mg/dL (74-106); POTASSIUM - SERUM 3.4 mmol/L (3.5-5.1); PROTEIN - SERUM 7.2 g/dL (6.4-8.2); SODIUM 137 mmol/L (136-145); UREA NITROGEN 7 mg/dL (7-18); eGFR NON AFRICAN AMERICAN 89 mL/min (90-120)
[2017-10-18 00:08] VITALS: BP 133/73
[2017-10-18 09:51] VITALS: BP 131/70
[2017-10-18 12:37] VITALS: BP 113/63
[2017-10-18] MEDS ORDERED: CHRONULAC30 ML PO (14:34)
[2017-10-18] MEDS ORDERED: CARDIZEM60 MG PO (14:34)
[2017-10-18] MEDS ORDERED: KEPPRA XR500 MG PO (14:34)
[2017-10-18] MEDS ORDERED: LEVAQUIN750 MG PO (14:34)
[2017-10-18] MEDS ORDERED: FLORAJEN3 CAPS460 MG PO (14:35)
[2017-10-18] MEDS ORDERED: VENTOLIN HFA18 GM INH (14:36)
== END 2017-10-18 15:29 | disposition home or self-care (01) | DRG 177 ==
LOC: D.ER 10:04 → D.SDCHOLD 16:23 → D.MS 16:23 → D.ICU 16:23 → D.MS 10-16 19:45
PROVIDERS: Family Medicine; General Practice; Internal Medicine Gastroenterology; Internal Medicine Nephrology; Radiology Diagnostic Radiology
PROC: 0FB03ZX Excision of Liver, Percutaneous Approach, Diagnostic (ICD-10-PCS; principal; 2017-10-17 09:30)
DX: J69.0 Pneumonitis due to inhalation of food and vomit (principal); G93.41 Metabolic encephalopathy; F17.203 Nicotine dependence unspecified, with withdrawal; K76.6 Portal hypertension; E87.1 Hypo-osmolality and hyponatremia; F10.231 Alcohol dependence with withdrawal delirium; K70.30 Alcoholic cirrhosis of liver without ascites; I10 Essential (primary) hypertension; F41.9 Anxiety disorder, unspecified; N30.90 Cystitis, unspecified without hematuria; E87.6 Hypokalemia; E88.09 Other disorders of plasma-protein metabolism, not elsewhere classified; D63.8 Anemia in other chronic diseases classified elsewhere; D69.6 Thrombocytopenia, unspecified; G40.909 Epilepsy, unspecified, not intractable, without status epilepticus; R16.0 Hepatomegaly, not elsewhere classified; J15.8 Pneumonia due to other specified bacteria

== ENCOUNTER 2018-04-24 10:01 | Inpatient (IN) | payer MEDICARE, BC ==
[2018-04-24] VITALS (9 sets, daily range): BP systolic 100–138; BP diastolic 63–79
[~2018-04-24] VITALS: Ht 160 cm; Wt 52.3 kg
[~2018-04-24 10:01] MED LIST changes: +CARDIZEM60 MG PO; +CHRONULAC30 ML PO; +FLORAJEN3 CAPS460 MG PO; +KEPPRA XR500 MG PO; +LEVAQUIN750 MG PO; +VENTOLIN HFA18 GM INH
[2018-04-24 11:32] LABS: BASOPHILS 0.4 % (0-2); EOSINOPHILS 1.8 % (0-7); HEMATOCRIT 41.6 % (36.0-48.0); HEMOGLOBIN 14.3 g/dL (12-16); IMMATURE GRANULOCYTES 0.2 % (0-5); LYMPHOCYTES 17.7 % (15-50); MCH 35.9 pg (26.0-34.0); MCHC 34.4 g/dL (31.0-37.0); MCV 104.5 fL (80.0-100.0); MEAN PLATELET VOLUME 10.4 fL (7.4-10.4); MONOCYTES 10.5 % (2-11); NEUTROPHILS 69.4 % (40-80); PLATELET COUNT 84 10x3/uL (130-400); RBC 3.98 10x6/uL (4.00-5.40); RDW 13.7 % (11.5-14.5); WBC 5.4 10x3/uL (4.8-10.8)
[2018-04-24 11:48] LABS: ALBUMIN 3.4 g/dL (3.4-5.0); ANION GAP 12.4 mmol/L (8-16); BILIRUBIN - TOTAL 1.71 mg/dL (0.2-1.3); CALCIUM 9.1 mg/dL (8.5-10.1); CARBON DIOXIDE 27.3 mmol/L (21.0-32.0); CREATININE - SERUM 0.9 mg/dL (0.6-1.3); POTASSIUM - SERUM 3.7 mmol/L (3.5-5.1); PROTEIN - SERUM 9.4 g/dL (6.4-8.2)
[2018-04-24 11:56] LABS: MAGNESIUM - SERUM 1.5 mg/dL (1.8-2.4)
[2018-04-24 12:06] LABS: PLATELET ESTIMATE DECREASED
[2018-04-24 20:28] LABS: BASOPHILS 0.2 % (0-2); EOSINOPHILS 0.2 % (0-7); HEMATOCRIT 34.1 % (36.0-48.0); IMMATURE GRANULOCYTES 0.4 % (0-5); LYMPHOCYTES 8.5 % (15-50); MCHC 33.1 g/dL (31.0-37.0); MCV 105.6 fL (80.0-100.0); MEAN PLATELET VOLUME 10.6 fL (7.4-10.4); MONOCYTES 1.3 % (2-11); NEUTROPHILS 89.4 % (40-80); PLATELET COUNT 76 10x3/uL (130-400); RBC 3.23 10x6/uL (4.00-5.40); RDW 13.9 % (11.5-14.5); WBC 5.2 10x3/uL (4.8-10.8)
[2018-04-24 20:44] LABS: HEMOGLOBIN 11.3 g/dL (12-16)
[2018-04-24 20:45] LABS: ANION GAP 10.7 mmol/L (8-16); CALCIUM 8.4 mg/dL (8.5-10.1); CARBON DIOXIDE 26.2 mmol/L (21.0-32.0); CREATININE - SERUM 0.9 mg/dL (0.6-1.3)
[2018-04-24 20:46] LABS: POTASSIUM - SERUM 4.9 mmol/L (3.5-5.1)
[2018-04-25] VITALS (7 sets, daily range): BP systolic 97–116; BP diastolic 54–69; Ht 160 cm; Wt 52.3 kg
[2018-04-26] VITALS: BP 104/72
[2018-04-26 04:00] VITALS: BP 133/74
[2018-04-26 08:41] VITALS: BP 144/81
[2018-04-26 13:32] VITALS: BP 120/60
[2018-04-26 15:24] VITALS: BP 116/63
[2018-04-26 21:42] VITALS: BP 118/72
[2018-04-27] VITALS: BP 155/79
[2018-04-27 04:00] VITALS: BP 125/59
[2018-04-27 08:32] VITALS: BP 154/85
[2018-04-27 11:00] VITALS: BP 146/76
[2018-04-27 16:00] VITALS: BP 145/77
[2018-04-27 20:00] VITALS: BP 140/67
[2018-04-28 04:00] VITALS: BP 141/72
[2018-04-28 10:22] VITALS: BP 110/63
[2018-04-28 16:42] VITALS: BP 124/62
[2018-04-28 20:33] VITALS: BP 125/51
[2018-04-29 03:30] VITALS: BP 129/78
[2018-04-29 09:04] VITALS: BP 115/67
[2018-04-29 12:14] LABS: BASOPHILS 0.7 % (0-2); EOSINOPHILS 4.5 % (0-7); HEMATOCRIT 29.7 % (36.0-48.0); HEMOGLOBIN 9.8 g/dL (12-16); IMMATURE GRANULOCYTES 0.5 % (0-5); LYMPHOCYTES 10.6 % (15-50); MCV 106.1 fL (80.0-100.0); MEAN PLATELET VOLUME 11.1 fL (7.4-10.4); MONOCYTES 10.6 % (2-11); NEUTROPHILS 73.1 % (40-80); RDW 14.7 % (11.5-14.5); WBC 5.6 10x3/uL (4.8-10.8)
[2018-04-29 12:16] LABS: PLATELET COUNT 102 10x3/uL (130-400)
[2018-04-29 12:29] LABS: ALBUMIN 2.4 g/dL (3.4-5.0); ALKALINE PHOSPHATASE 131 U/L (46-116); ALT (SGPT) 24 U/L (10-68); BILIRUBIN - TOTAL 0.99 mg/dL (0.2-1.3); CALC OSMOLALITY 273 mosm/kg (275-300); CALCIUM 8.1 mg/dL (8.5-10.1); CARBON DIOXIDE 25.5 mmol/L (21.0-32.0); CHLORIDE - SERUM 104 mmol/L (98-107); CREATININE - SERUM 0.6 mg/dL (0.6-1.3); GLUCOSE 157 mg/dL (74-106); POTASSIUM - SERUM 3.9 mmol/L (3.5-5.1); PROTEIN - SERUM 6.2 g/dL (6.4-8.2); SODIUM 136 mmol/L (136-145); UREA NITROGEN 9 mg/dL (7-18); eGFR NON AFRICAN AMERICAN > 90 mL/min (90-120)
[2018-04-29 13:13] VITALS: BP 158/89
[2018-04-29 18:34] VITALS: BP 143/79
[2018-04-29 20:00] VITALS: BP 134/71
[2018-04-30 04:28] VITALS: BP 121/66
[2018-04-30 05:06] LABS: BASOPHILS 0.2 % (0-2); EOSINOPHILS 7.7 % (0-7); HEMATOCRIT 30.1 % (36.0-48.0); HEMOGLOBIN 10.1 g/dL (12-16); IMMATURE GRANULOCYTES 0.6 % (0-5); LYMPHOCYTES 13.5 % (15-50); MCH 35.7 pg (26.0-34.0); MCHC 33.6 g/dL (31.0-37.0); MCV 106.4 fL (80.0-100.0); MEAN PLATELET VOLUME 10.6 fL (7.4-10.4); MONOCYTES 8.5 % (2-11); NEUTROPHILS 69.5 % (40-80); PLATELET COUNT 95 10x3/uL (130-400); RBC 2.83 10x6/uL (4.00-5.40); RDW 15.1 % (11.5-14.5)
[2018-04-30 05:22] LABS: ALBUMIN 2.3 g/dL (3.4-5.0); ALKALINE PHOSPHATASE 121 U/L (46-116); ALT (SGPT) 23 U/L (10-68); BILIRUBIN - TOTAL 1.32 mg/dL (0.2-1.3); CALC OSMOLALITY 270 mosm/kg (275-300); CARBON DIOXIDE 25.8 mmol/L (21.0-32.0); CHLORIDE - SERUM 104 mmol/L (98-107); CREATININE - SERUM 0.7 mg/dL (0.6-1.3); POTASSIUM - SERUM 3.9 mmol/L (3.5-5.1); PROTEIN - SERUM 6.3 g/dL (6.4-8.2); SODIUM 136 mmol/L (136-145); UREA NITROGEN 9 mg/dL (7-18); eGFR NON AFRICAN AMERICAN 89 mL/min (90-120)
[2018-04-30 05:23] LABS: GLUCOSE 102 mg/dL (74-106)
[2018-04-30 09:49] VITALS: BP 141/67
[2018-04-30 12:45] VITALS: BP 115/57; BP 158/71
[2018-04-30 16:40] VITALS: BP 121/68
[2018-04-30 20:35] VITALS: BP 122/64
[2018-05-01 03:49] VITALS: BP 104/53
[2018-05-01 07:48] LABS: BASOPHILS 0.2 % (0-2); EOSINOPHILS 6.6 % (0-7); HEMATOCRIT 28.7 % (36.0-48.0); HEMOGLOBIN 9.5 g/dL (12-16); IMMATURE GRANULOCYTES 0.8 % (0-5); LYMPHOCYTES 12.9 % (15-50); MCH 34.8 pg (26.0-34.0); MCHC 33.1 g/dL (31.0-37.0); MCV 105.1 fL (80.0-100.0); MEAN PLATELET VOLUME 10.1 fL (7.4-10.4); NEUTROPHILS 70.5 % (40-80); PLATELET COUNT 101 10x3/uL (130-400); RBC 2.73 10x6/uL (4.00-5.40); RDW 15.1 % (11.5-14.5); WBC 6.2 10x3/uL (4.8-10.8)
[2018-05-01 08:11] LABS: ALBUMIN 2.2 g/dL (3.4-5.0); ANION GAP 11.5 mmol/L (8-16); BILIRUBIN - TOTAL 1.4 mg/dL (0.2-1.3); CALCIUM 7.8 mg/dL (8.5-10.1); CARBON DIOXIDE 21.7 mmol/L (21.0-32.0); POTASSIUM - SERUM 4.2 mmol/L (3.5-5.1)
[2018-05-01 08:12] LABS: CREATININE - SERUM 0.9 mg/dL (0.6-1.3)
[2018-05-01 08:28] VITALS: BP 108/58
[2018-05-01 11:10] VITALS: BP 103/50
[2018-05-01] MEDS ORDERED: NORCO-7.5 PO (14:41)
[2018-05-01] MEDS ORDERED: FLORAJEN3 CAPS460 MG PO (14:41)
[2018-05-01] MEDS ORDERED: LIBRIUM5 MG PO (14:41)
[2018-05-01] MEDS ORDERED: VALIUM5 MG PO (14:41)
[2018-05-01] MEDS ORDERED: THIAMINE HCL50 MG PO (14:42)
[2018-05-01] MEDS ORDERED: MIRALAX17 GM PO (14:42)
[2018-05-01] MEDS ORDERED: ONDANSETRON4 MG/2 M3 IV (14:42)
[2018-05-01 15:53] VITALS: BP 110/61
[2018-05-01] MEDS ORDERED: VIBRAMYCIN 100100 MG PO (16:10)
== END 2018-05-01 18:47 | DRG 492 ==
LOC: D.ER 10:01 → D.MS 11:26 → D.EDHOLD 11:26 → D.MS 11:31
PROVIDERS: Family Medicine; Orthopaedic Surgery
PROC: 0QSH0ZZ Reposition Left Tibia, Open Approach (ICD-10-PCS; 2018-04-24)
PROC: 0QPH04Z Removal of Internal Fixation Device from Left Tibia, Open Approach (ICD-10-PCS; 2018-04-24)
PROC: 0QSH0ZZ Reposition Left Tibia, Open Approach (ICD-10-PCS; 2018-04-24)
PROC: 0QSK0ZZ Reposition Left Fibula, Open Approach (ICD-10-PCS; principal; 2018-04-24 15:00)
DX: S82.852A Displaced trimalleolar fracture of left lower leg, initial encounter for closed fracture (principal); G93.41 Metabolic encephalopathy; K76.6 Portal hypertension; D68.9 Coagulation defect, unspecified; W19.XXXA Unspecified fall, initial encounter; F17.200 Nicotine dependence, unspecified, uncomplicated; K70.30 Alcoholic cirrhosis of liver without ascites; F10.20 Alcohol dependence, uncomplicated; R16.0 Hepatomegaly, not elsewhere classified; E80.6 Other disorders of bilirubin metabolism; L27.0 Generalized skin eruption due to drugs and medicaments taken internally; T36.8X5A Adverse effect of other systemic antibiotics, initial encounter; Y92.239 Unspecified place in hospital as the place of occurrence of the external cause; E87.6 Hypokalemia; D69.6 Thrombocytopenia, unspecified; D63.8 Anemia in other chronic diseases classified elsewhere; E86.0 Dehydration; R41.0 Disorientation, unspecified

== ENCOUNTER 2018-05-01 16:50 | Inpatient (IN) | payer MEDICARE, BC ==
[~2018-05-01] VITALS: Ht 160 cm; Wt 59.0 kg
--- NOTE | ~2018-05-01 | RHP ---
PATIENT: GLADYS SAINI MEDICAL RECORD: [id number] ACCOUNT: [id number] LOCATION:[facility].1114 : 54 ADMISSION DATE: 05/01/18 REHABILITATION HISTORY AND PHYSICAL EXAMINATION POST ADMISSION PHYSICIAN EXAMINATION DATE OF ADMISSION: 05/01/2018 ADMITTING DIAGNOSIS: Acute metabolic encephalopathy. HISTORY OF PRESENT ILLNESS: The patient is a 68-year-old female patient admitted to inpatient rehab with acute metabolic encephalopathy. Postop, she was admitted from the Emergency Room. She reports she fell on the left ankle about a week prior to this. She had increased swelling and bruising to the lateral aspect of her ankle and foot. She says she did not know the details of her fall, could give no explanation of why. The patient did have a surgical scar noted on her ankle from her previous ORIF, but did not know how long ago or who the doctor was who fixed it. She had marked swelling and ecchymosis to the lateral aspect of the ankle extending down to the foot. She had good distal perfusion with limited range of motion secondary to swelling and pain. X-ray of her left ankle showed a trimalleolar posterior medial fracture dislocation with retained tibial sal. She was admitted on orthopedic consult. She has got a past medical history of alcohol dependency and hypertension. On 04/24/2018, she went to the OR for left ankle tibiotalar dislocation reduction, left ankle ORIF of all 3 malleoli, left ankle syndesmosis repair, left ankle deep hardware removal. Her postop course has been complicated by hyponatremia, hyperbilirubinemia, confusion, disorientation. ID was consulted for possible chronic osteomyelitis. She was living alone, independent with ADLs and mobility. Currently, she is mod to max assist for ADLs and mobility secondary to toe-touch weightbearing on left lower extremity. BARRIERS TO DISCHARGE: She lives alone. She has 2 stairs to get into her home. She has had some recent falls, diagnosis of metabolic encephalopathy with confusion and disorientation. She voices a desire to return back home, hopefully get back to her prior level of functioning. COMORBIDITIES: In this patient include alcohol dependence, dehydration, hypokalemia, leukocytosis, metabolic encephalopathy, delirium, hyponatremia, thrombocytopenia, left trimalleolar fracture dislocation status post ORIF of left ankle, frequent falls, self-care deficit pain. She got a history of liver masses, portal hypertension, macrocytic anemia, tobacco abuse, coagulopathy, hyperbilirubinemia and elevated temperature. PAST MEDICAL HISTORY: Significant for vertigo, hypertension, anxiety, tobacco use, urinary incontinence, left ankle fracture and alcohol use. PAST SURGICAL HISTORY: Includes hysterectomy and ankle fracture. ALLERGIES: VANCOMYCIN. CURRENT MEDICATIONS: Include Bactrim 1 p.o. b.i.d. She is on vitamin D 100 mg daily or thiamine. She is on Floranex 460 mg daily, folic acid 1 mg daily, Benadryl as needed for itching. She is on potassium chloride 20 mEq t.i.d., MiraLax 17 grams b.i.d., Zofran p.r.n., [place] 1 tab every 4 hours p.r.n. She is on Vibramycin 100 mg b.i.d. She is on Cardizem 60 mg b.i.d., diazepam 5 mg HISTORY AND PHYSICAL [id number] SAINI,GLADYS every 8 hours p.r.n. and Librium 5 mg b.i.d. HABITS: Does have a history of tobacco and alcohol use. FAMILY HISTORY: Noncontributory. SOCIAL HISTORY: The patient hopes to return back home and get back to her prior level of functioning. REVIEW OF SYSTEMS: GENERAL: Does complain of weakness and fatigue. HEENT: Denies cold, cough, or congestion. CARDIOVASCULAR: Denies chest pain. PHYSICAL EXAMINATION: VITAL SIGNS: Stable, afebrile. GENERAL: An older than stated age female in no distress upon exam. HEENT: Normocephalic and atraumatic. Mucosa moist. NECK: Supple. No lymphadenopathy. LUNGS: Clear at this time. HEART: Regular rate and rhythm. ABDOMEN: Benign. EXTREMITIES: Does have surgical dressings in place. NEUROLOGIC: She is a little bit slow to mentate. LABORATORY DATA: Her white count is 5.2, H&H of 9.2 and 27.7. Her MCV is 105.7. Her platelet count is 84. Sodium is 131, potassium 3.9, BUN and creatinine of 14 and 1.1 and blood sugar was noted to be 107. ASSESSMENT: This 68-year-old female patient admitted to rehab with a working diagnoses of acute metabolic encephalopathy, also trimalleolar fracture/dislocation. The patient has potential to make improvement. We instituted the following multidisciplinary therapies including, but not limited to physical, occupational, respiratory, speech, nutritional services, prosthetics and orthotics. Given her complex medical condition and risks for more complications, rehabilitation services cannot be provided at a low level of care such as skilled nurse facility. PLAN: 1. Admit to [facility] for intensive inpatient therapy to include the following disciplines: A. Physical therapy to improve gait, all transfer skills and bed mobility to a modified independent level. B. Occupational therapy to a modified independent level. C. Case management to assist with discharge planning and placement options. D. Nutrition to assist with nutritional needs. E. Rehabilitation nursing to assist in monitoring the patient's underlying medical conditions and to assist with any type of bowel or bladder management. 2. The patient's current medication and medical care will be continued. 3. The patient will be placed on standard fall precautions. 4. The patient's estimated length of stay is approximately 7 to 10 days. 5. Discuss this patient during care team staff meeting this week. Watch for any signs of DT. Continue on electrolyte replacement and also a folate and B12 replacement and I am going to follow up in the a.m. HISTORY AND PHYSICAL [id number] GLADYS SAINI TRANSINT:[id number] Voice Confirmation ID: [id number] DOCUMENT ID: [id number] ARAMIS notes whether there has been none or any medical/functional change since admission: - No change in preadmission screen. ARAMIS attests patient continues to be appropriate for IRF: - Continues to be appropriate. YESY MCKEON MD at 1733 CC: [id number] DICTATION DATE: 05/02/18 0846 RN CLINICAL RESOURCE: 05/02/18 1023 DIS IN 05/06/18 [facility] [address] [place] [address]
[~2018-05-01 16:50] MED LIST changes: +LIBRIUM5 MG PO; +MIRALAX17 GM PO; +NORCO-7.5 PO; +ONDANSETRON4 MG/2 M3 IV; +THIAMINE HCL50 MG PO; +VALIUM5 MG PO; +VIBRAMYCIN 100100 MG PO
[2018-05-01 20:09] LABS: BASOPHILS 0.4 % (0-2); EOSINOPHILS 7.8 % (0-7); HEMATOCRIT 27.7 % (36.0-48.0); HEMOGLOBIN 9.2 g/dL (12-16); IMMATURE GRANULOCYTES 1.1 % (0-5); LYMPHOCYTES 16.8 % (15-50); MCH 35.1 pg (26.0-34.0); MCHC 33.2 g/dL (31.0-37.0); MCV 105.7 fL (80.0-100.0); MEAN PLATELET VOLUME 10.1 fL (7.4-10.4); MONOCYTES 9.7 % (2-11); NEUTROPHILS 64.2 % (40-80); PLATELET COUNT 84 10x3/uL (130-400); RBC 2.62 10x6/uL (4.00-5.40); RDW 15.2 % (11.5-14.5); WBC 5.2 10x3/uL (4.8-10.8)
[2018-05-01 20:28] LABS: ANION GAP 13.6 mmol/L (8-16); CALCIUM 7.7 mg/dL (8.5-10.1); CARBON DIOXIDE 22.3 mmol/L (21.0-32.0); CREATININE - SERUM 1.1 mg/dL (0.6-1.3); POTASSIUM - SERUM 3.9 mmol/L (3.5-5.1)
[2018-05-01 20:59] VITALS: BP 102/54
[2018-05-01 22:39] VITALS: BP 102/54
[2018-05-02 00:37] VITALS: BP 102/54; BMI 23.0
[2018-05-02 08:24] VITALS: BP 114/53
[2018-05-02 16:03] VITALS: Ht 160 cm; Wt 59.0 kg
[2018-05-02 19:00] VITALS: BP 95/48
[2018-05-03 06:57] LABS: HEMOGLOBIN 9.4 g/dL (12-16); LYMPHOCYTES 25.6 % (15-50); MCH 35.5 pg (26.0-34.0); MCHC 33.6 g/dL (31.0-37.0); MCV 105.7 fL (80.0-100.0); MEAN PLATELET VOLUME 10.7 fL (7.4-10.4); NEUTROPHILS 58.4 % (40-80); PLATELET COUNT 93 10x3/uL (130-400); RBC 2.65 10x6/uL (4.00-5.40); RDW 15.4 % (11.5-14.5); WBC 5.6 10x3/uL (4.8-10.8)
[2018-05-03 07:02] LABS: CALCIUM 8.5 mg/dL (8.5-10.1); CARBON DIOXIDE 20.9 mmol/L (21.0-32.0)
[2018-05-03 07:03] LABS: POTASSIUM - SERUM 4.9 mmol/L (3.5-5.1)
[2018-05-03 08:00] VITALS: BP 95/41
[2018-05-03 19:00] VITALS: BP 126/58
[2018-05-04 11:22] VITALS: BP 123/63
[2018-05-04 22:46] VITALS: BP 103/54
[2018-05-05 08:00] VITALS: BP 105/53
[2018-05-05 20:37] VITALS: BP 112/73
[2018-05-06 06:24] LABS: BASOPHILS 0.9 % (0-2); EOSINOPHILS 9.5 % (0-7); HEMATOCRIT 27.3 % (36.0-48.0); HEMOGLOBIN 8.7 g/dL (12-16); IMMATURE GRANULOCYTES 0.6 % (0-5); LYMPHOCYTES 29.4 % (15-50); MCH 34.4 pg (26.0-34.0); MCHC 31.9 g/dL (31.0-37.0); MCV 107.9 fL (80.0-100.0); MEAN PLATELET VOLUME 11.1 fL (7.4-10.4); MONOCYTES 8.5 % (2-11); NEUTROPHILS 51.1 % (40-80); PLATELET COUNT 91 10x3/uL (130-400); RBC 2.53 10x6/uL (4.00-5.40); RDW 15.8 % (11.5-14.5); WBC 7.1 10x3/uL (4.8-10.8)
[2018-05-06 06:35] LABS: CALC OSMOLALITY 276 mosm/kg (275-300); CALCIUM 8.3 mg/dL (8.5-10.1); CARBON DIOXIDE 22.5 mmol/L (21.0-32.0); CHLORIDE - SERUM 107 mmol/L (98-107); CREATININE - SERUM 0.8 mg/dL (0.6-1.3); GLUCOSE 101 mg/dL (74-106); POTASSIUM - SERUM 4.6 mmol/L (3.5-5.1); SODIUM 138 mmol/L (136-145); UREA NITROGEN 15 mg/dL (7-18); eGFR NON AFRICAN AMERICAN 76 mL/min (90-120)
[2018-05-06 07:48] VITALS: BP 110/54
== END 2018-05-06 13:18 | disposition home or self-care (01) | DRG 71 ==
LOC: D.REHAB 16:50
PROVIDERS: Emergency Medicine
DX: G93.41 Metabolic encephalopathy (principal); E87.1 Hypo-osmolality and hyponatremia; K76.6 Portal hypertension; F10.20 Alcohol dependence, uncomplicated; E86.0 Dehydration; E87.6 Hypokalemia; D72.829 Elevated white blood cell count, unspecified; R41.0 Disorientation, unspecified; D69.6 Thrombocytopenia, unspecified; S82.852D Displaced trimalleolar fracture of left lower leg, subsequent encounter for closed fracture with routine healing; W19.XXXD Unspecified fall, subsequent encounter; F17.200 Nicotine dependence, unspecified, uncomplicated; K70.30 Alcoholic cirrhosis of liver without ascites

== ENCOUNTER → 2018-05-28 11:39 | Outpatient (CLI) | payer MEDICARE, BC ==
[2018-05-02 16:03] VITALS: BMI 23.0
== END | disposition home or self-care (01) ==
LOC: D.LABREF 11:39
DX: M25.571 Pain in right ankle and joints of right foot (principal)

== ENCOUNTER → 2018-05-30 13:35 | Outpatient (CLI) | payer MEDICARE, BC ==
[2018-05-02 16:03] VITALS: BMI 23.0
[2018-05-30 17:41] LABS: BASOPHILS 0.2 % (0-2); EOSINOPHILS 3.5 % (0-7); HEMATOCRIT 38.5 % (36.0-48.0); HEMOGLOBIN 12.5 g/dL (12-16); IMMATURE GRANULOCYTES 0.2 % (0-5); LYMPHOCYTES 17.3 % (15-50); MCH 34.2 pg (26.0-34.0); MCHC 32.5 g/dL (31.0-37.0); MCV 105.2 fL (80.0-100.0); MEAN PLATELET VOLUME 11.7 fL (7.4-10.4); MONOCYTES 8.1 % (2-11); NEUTROPHILS 70.7 % (40-80); PLATELET COUNT 73 10x3/uL (130-400); RBC 3.66 10x6/uL (4.00-5.40); RDW 14.9 % (11.5-14.5); WBC 5.1 10x3/uL (4.8-10.8)
[2018-05-30 18:09] LABS: PLATELET ESTIMATE DECREASED
[2018-05-30 18:40] LABS: ERYTHROCYTE SEDIMENTATION RATE 38 mm/hr (0-30)
== END | disposition home or self-care (01) ==
LOC: D.US 13:35
PROVIDERS: Orthopaedic Surgery
DX: M79.605 Pain in left leg (principal)

== ENCOUNTER → 2018-05-30 17:34 | Outpatient (CLI) | payer MEDICARE, BC ==
[2018-05-02 16:03] VITALS: BMI 23.0
== END | disposition home or self-care (01) ==
LOC: D.LABREF 17:34
DX: T81.89XD Other complications of procedures, not elsewhere classified, subsequent encounter (principal)

== ENCOUNTER 2019-02-14 14:52 | Emergency (ER) | payer MEDICARE, BC ==
[2019-02-14 14:54] VITALS: BMI 23.0
[2019-02-14 15:44] LABS: HEMATOCRIT 27.3 % (36.0-48.0); HEMOGLOBIN 8.9 g/dL (12-16); MCH 35.6 pg (26.0-34.0); MCHC 32.6 g/dL (31.0-37.0); MCV 109.2 fL (80.0-100.0); MEAN PLATELET VOLUME 11.9 fL (7.4-10.4); PLATELET COUNT 134 10x3/uL (130-400); RDW 15.6 % (11.5-14.5); WBC 22.6 10x3/uL (4.8-10.8)
[2019-02-14 15:49] LABS: APTT 36.8 SECONDS (22.8-39.4); INR 2.11 (0.85-1.17); PROTIME 22.9 SECONDS (11.6-15.0)
[2019-02-14 15:56] LABS: LYMPHOCYTES 6 % (15-50); MONOCYTES 1 % (2-11); NEUTROPHILS 90 % (40-80); PLATELET ESTIMATE DECREASED
[2019-02-14 16:01] LABS: ALBUMIN 2.5 g/dL (3.4-5.0); ANION GAP 22.6 mmol/L (8-16); BILIRUBIN - TOTAL 4.95 mg/dL (0.2-1.3); CALCIUM 8.9 mg/dL (8.5-10.1); CARBON DIOXIDE 18.8 mmol/L (21.0-32.0); CREATININE - SERUM 1.9 mg/dL (0.6-1.3); POTASSIUM - SERUM 4.4 mmol/L (3.5-5.1)
[2019-02-14 16:16] LABS: PROTEIN - SERUM 7.9 g/dL (6.4-8.2)
[2019-02-14 22:45] VITALS: BP 144/68
[2019-02-22 17:07] LABS: AEROBE ID Final report (())
== END 2019-02-15 07:06 | disposition home or self-care (01) ==
LOC: D.ER 14:52
PROVIDERS: Family Medicine
DX: N83.202 Unspecified ovarian cyst, left side (principal); N83.201 Unspecified ovarian cyst, right side